=== PATIENT | male | born 1940 | race Caucasian/White ===

== ENCOUNTER → 2019-04-22 | Outpatient (CLI) | payer MEDICARE, OTHER ==
[~2019-04-22] MED LIST: ALLOPURINOL100 MG PO; CARAFATE1 G1 PO; CELEBREX200 MG PO; DYAZIDE 25 MG-31 CAP PO; FLOMAX0.4 MG PO; LIPITOR10 MG PO; NORFLEX100 MG PO; VICODIN ES 7501 TAB PO
== END ==
LOC: RAD 11:33
DX: M25.551 Pain in right hip (principal); M25.552 Pain in left hip